=== PATIENT | male | born 1975 | race Two or more races ===

== ENCOUNTER 2023-03-07 12:06 | Emergency (ER) | payer SELFPAY ==
[~2023-03-07] VITALS: Ht 170.2 cm; Wt 88.0 kg
[2023-03-07 13:18] VITALS: BP 118/84
[2023-03-07] MEDS ORDERED: HYDR-4902 PO (13:44)
[2023-03-07] MEDS ORDERED: IBUP600T28 PO (13:44)
[2023-03-07] MEDS ORDERED: CEPH-510 PO (13:44)
[2023-03-07] MEDS ORDERED: HYDROcodone-ACET 5/325MG TAB PO ONE (13:45)
[2023-03-07] MEDS ORDERED: NEOMYCIN-BACITRACIN-POLYM UNITDOSE PKG TOP OINT TOP ONE (13:45)
[2023-03-07] MEDS ORDERED: LIDOCAINE 1% HCL (LOCAL ANESTH.) INJ 20ML MDV ID ONE (13:45)
[2023-03-07] MEDS ORDERED: TETANUS-DIPTH-ACEL PERTUSSIS 0.5ML SYR Tdap IM ONE (14:45)
== END 2023-03-07 15:44 | disposition home or self-care (01) ==
LOC: ER 12:06
DX: S62.524A Nondisplaced fracture of distal phalanx of right thumb, initial encounter for closed fracture (principal); S61.011A Laceration without foreign body of right thumb without damage to nail, initial encounter; W45.8XXA Other foreign body or object entering through skin, initial encounter; Y93.89 Activity, other specified; Y92.89 Other specified places as the place of occurrence of the external cause; Y99.8 Other external cause status
CPT/HCPCS: 29125; 73140; 90471; 90715; 99283; J2001

== ENCOUNTER 2023-03-27 11:09 | Emergency (ER) | payer SELFPAY ==
[~2023-03-27] VITALS: Ht 170.2 cm; Wt 87.7 kg
[~2023-03-27 11:09] MED LIST: CEPH-510 PO; HYDR-4902 PO; IBUP600T28 PO
[2023-03-27 12:04] VITALS: BP 121/78
[2023-03-27] MEDS ORDERED: IBUPROFEN 600 MG TAB PO ONE (14:00)
[2023-03-27] MEDS ORDERED: CLIN300C8 PO (15:45)
[2023-03-27] MEDS ORDERED: IBUP600T28 PO (15:47)
== END 2023-03-27 16:24 | disposition home or self-care (01) ==
LOC: ER 11:09
DX: S61.012D Laceration without foreign body of left thumb without damage to nail, subsequent encounter (principal); L03.012 Cellulitis of left finger; Z79.899 Other long term (current) drug therapy; X58.XXXD Exposure to other specified factors, subsequent encounter
CPT/HCPCS: 29515; 73130